=== PATIENT | male | born 1970 | race Caucasian/White ===

== ENCOUNTER 2025-01-31 02:36 | Emergency (ER) | payer OTHER, SELFPAY ==
--- OUTSIDE RECORDS SUMMARY | 2025-01-14 15:00 | XMS_ITS | Encounter Summary ---
Author Organization [facility] Address [address] [place] [address] Care Team Providers Care Lab Rn Name Role Phone Mauro Cedeno OD Unavailable + Delon Calderon PA-C Unavailable [phone] Severo Lamb MD Unavailable [phone] Lian Roland MD Unavailable [phone] Servando Moreno MD Unavailable Joyce Hart DO Primary Care Provider Encounter Details Date Type Department Care Team (Late st Contact Info) Description 01/14/2025 1:00 PM PST Video Visit [facility] [address] [place] [phone] Pj Cunningham PA [address] [place] [address] Upper back pain on left side (Primary Dx); Acute pain of left shoulder Social History Tobacco Use Types Packs/Day Years Used Date Smoking Tobacco: Never Smokeless Tobacco: Never Alcohol Use Standard Drinks/Week Comments Yes 0 (1 standard drink = 0.6 oz pur e alcohol) occasionally Overall Financial Resource Strain (CARDIA) Answe r Date Recorded How hard is it for you to pa vishal for the very basics like food, housing, medical care, and heating? Not very hard 08/31/2023 Hunger Vital Sign Answer Date Recorded Within the past 12 months, y ou worried that your food would run out before you got the money to buy more. Never true 08/31/19 24 Within the past 12 months, t he food you bought just didn't last and you didn't have money to get more. Never true 08/31/2023 PRAPARE - Transportation Answer Date Re corded In the past 12 months, has l ack of transportation kept you from medical appointments or from getting medications? No 08/10 In the past 12 months, has l ack of transportation kept you from meetings, work, or from getting things needed for daily living? No 08/31/2023 Housing Stability Vital Sign Answer Mane e Recorded In the last 12 months, was t here a time when you were not able to pay the mortgage or rent on time? No 08/31/2023 In the last 12 months, how many places have you lived? 1 08/31/2023 In the last 12 months, was t here a time when you did not have a steady place to sleep or slept in a fpc (including now)? No 08/31/2023 Current Social Needs Answer Date Record ed Would you like a [facility] to assist you in getting help with any of the following? Please select ALL that apply. 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 Answer Date of Assessment Author No 05/04/2015 8:36 AM PST * Is this person blind or does he/she have serious difficulty seeing even when wearing glasses? Answer Date of Assessment Author No 05/04/2015 8:36 AM PST * Does this person have serious difficulty walking or climbing stairs? Answer Date of Assessment Author No 05/04/2015 8:36 AM PST * Because of a physical, mental, or emotional condition, does this person have difficulty doing errands alone such as visiting a doctor's office or shopping? Answer Date of Assessment Author No 05/04/2015 8:36 AM PST documented as of this encounter Mental Status * Because of a physical, mental, or emotional condition, does this person have serious difficulty concentrating, remembering, or making decisions? Answer Entry Date Author No 05/04/2015 8:36 AM PST documented in this encounter Progress Notes * Pj Cunningham PA - 01/14/2025 1:00 PM PST Video Visit Patient Name: Pierre Rider Age: [age] year old PCP: Joyce Jones DO Date of Service: 01/14/2025 No chief complaint on file. SUBJECTIVE: Pierre Rider is a 54 year old male who presents virtually for the following: Left sided upper back (Right periphery of shoulder blade) and shoulder pain x 1 week No known trauma or injury Some repetitive overuse activity Was attempting to start a generator but was with the right arm not the left Not improving and maybe worsening Hurts to cough/sneeze/certain movements Current pain level at rest 2-3 and with coughing/moving 5-8/10 Interfering with sleep No restricted range of motion Feels like muscle or pinched nerve Stabbing pain in back Arm/shoulder pain more diffuse Non-tender to touch No chest pain, shortness of breath Wheezing from respiratory allergies Postnasal drip with urge to cough No GI symptoms Subjective weakness due to pain Bending forward can be uncomfortable Somewhat better with massage Past Medical History: Diagnosis Date Allergic rhinitis Allergy, unspecified not elsewhere classified - Patient reported 01/04/2006 Benign neoplasm of colon - Patient reported 05/09/2013 Depressive disorder, not elsewhere classified - Patient reported 05/09/2013 Hx of colonoscopy 09/22/2021 Normal colonoscopy repeat 5 years due to family and personal hx Patient Active Problem List Diagnosis Seasonal allergic rhinitis due to pollen Nevus Family history of colon cancer Preventative health care Dermatographic urticaria Allergic rhinitis due to dust mite Hx of colonoscopy Cough 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 Seek medical attention after use (Patient not taking: Reported on 12/08/2024), Disp: 2 each, Rfl: 3 fluticasone propionate (FLONASE) 50 mcg/actuation nasal spray, Use 2 sprays in each nostril daily (Patient not taking: Reported on 12/08/2024), Disp: 1 each, Rfl: 6 omeprazole (PRILOSEC) 20 mg delayed release capsule, Take 1 capsule (20 mg) by mouth daily 30 minutes before a meal (Patient not taking: Reported on 12/08/2024), Disp: 30 capsule, Rfl: 11 cetirizine (ZYRTEC) 10 mg tablet, Take 10 mg by mouth daily, Disp: , Rfl: MISC DRUG (OTC PRODUCT (SEE SIG)), FENISTIL antihistamine (Patient not taking: Reported on 12/08/2024), Disp: , Rfl: MISC DRUG (OTC PRODUCT (SEE SIG)), Sinupret decongestant (Patient not taking: Reported on 12/08/2024), Disp: , Rfl: ergocalciferol (vitamin D2) (VITAMIN D ORAL), Take 1,000 mg by mouth daily (Patient not taking: Reported on 12/08/2024), Disp: , Rfl: ACETAMINOPHEN 325 MG ORAL TAB, Take 325 mg by mouth Do not exceed 4000mg/day PRN for pain, Disp: 100, Rfl: 11 OBJECTIVE: There were no vitals taken for this visit. Physical Exam: Left shoulder: normal ROM. Minimal discomfort with active ROM in all directions. ASSESSMENT/PLAN: (M54.9) Upper back pain on left side (primary encounter diagnosis) (M25.512) Acute pain of left shoulder Comment: pt convinced MSK in nature however no known injury or precipitating event. Symptoms worsening with cough, question underlying pulmonary cause. Recommend imaging for further evaluation. Pt refers to defer at this time. Would like to trial massage, maybe acupuncture first. Plan: X-RAY CHEST 2V (STD) PA+LAT, X-RAY SCAPULA (STD): 4V SHOULDER Follow up if not improving. Pierre Rider actively participated in the shared decision making process today. The patient indicates understanding of these issues and agrees with the plan. Video Visit Provider was located at [facility] for this visit and the patient was located at Home in [facility] A plant taxonomist was not necessary for this exam. This Video Visit consisted of 24 minutes of total time spent on today's encounter. Time may include direct patient care, reviewing pertinent records & follow-up activity. The patient reviewed and understands the [facility] telemedicine consent document and has discussed any related concerns or questions during the visit. KISHAN Keenan 01/14/2025 documented in this encounter Plan of Treatment Upcoming Encounters Date Type Department Care Team (Late st Contact Info) Description 02/12/2025 2:15 PM PST Procedure Visit [facility] [address] [place] [phone] Scheduled Orders Name Type Priority Associated Diagnoses Orde r Schedule X-RAY CHEST 2V (STD) PA+LAT Imaging Routine Upper back pain on left side Ordered: 01/14/2025 X-RAY SCAPULA (STD): 4V SHOULDER Imaging Routine Upper back pain on left side Ordered: 01/14/2025 documented as of this encounter Visit Diagnoses Diagnosis Upper back pain on left side- Primary Pain in thoracic spine Acute pain of left shoulder documented in this encounter Care Teams Lab Rn Relationship Specialty Start Date End Date Joyce Jones DO [address] [place] [address] PCP - General 04/06/19 Mauro Cedeno OD [address] [place] [address] Investment Representative: Auto-assigned Optometry, General 10/22/14 Delon Calderon PA-C [address] [place] [address] Orthopedics PA/EMBEDDED SOFTWARE MANAGER: Auto-Assigned Orthopedic Surgery 11/12/14 [place] [phone] Allergy Physician: Auto-assigned Allergy & Immunology 12/24/14 Lian Roland MD Dermatology Physician: Auto-assigned Dermatology 01/14/15 Servando Moreno MD [facility] Physician: Auto-assigned Sports Medicine 05/13/15 documented as of this encounter
[2025-01-31 02:40] VITALS: BP 106/70; PULSE 94; RESP 16; TEMP 35.6; O2SAT 95; BMI 28.3
--- NOTE | 2025-01-31 02:56 | ED_ITS ---
HPI - General Adult General Chief complaint: Diarrhea Stated complaint: Diarrhea, nausea Time Seen by Provider: 01/31/25 02:55 History of Present Illness HPI narrative: pt reports diarrhea, starting around noon 2024. Pt reports vomiting starting around midnight. 54-year-old man presenting to the emergency department with concern diarrhea and now vomiting. Beginning yesterday around noon began to have episodes of diarrhea. Does not describe any melena or hematochezia. And then about 3 hours prior to arrival in the emergency department began vomiting. Did experience moderate abdominal pain/cramping. While on the toilet apparently did have an episode of syncope and came to finding himself vomiting into the bathtub. No hematemesis although they do report that vomitus seemed unusually voluminous and then eventually dark which is concerning. Is not having significant abdominal pain at this time. No measured fever but does report how skin had been sensitive and he is still left with some back ache. By 1 point did experience significant shakes. No rashes noted. No particular exposures. No noted recent antibiotics. They called in and apparently spoke to physician who suggested at the present to the emergency department at least to receive an antiemetic. Related Data Allergies Allergy/AdvReac Type Severity Reaction Status Date / Time No Known Drug Allergies Allergy Verified 01/31/25 02:45 Review of Systems Status of ROS: Reports: 6 or more systems reviewed and unremarkable except as noted in History and below Exam Narrative: Exam Narrative: Does appear a little labored and mildly tachypneic in his breathing. Pleasant. Tired but alerts easily for conversation. Skin is warm and dry. Present bowel sounds. Abdomen generally of little uncomfortable but not significantly painful. No peritoneal signs certainly. Heart in elevated rate and regular rhythm. Lungs are clear. Oropharynx without bladder indication of injury. A with little sticky. Const: Vital Signs, click to edit/add: Vital Signs - 24 hr 01/31/25 02:40 Temperature 96.0 F L Pulse Rate [Left P ulse Oximeter] 94 Respiratory Rate 16 Blood Pressure [Ri ght Upper Arm] 106/70 Pulse Oximetry 95 Oxygen Delivery Me thod Room Air Documenting provider has reviewed patient's vital signs: yes Course Vital Signs Vital signs: Initial Vital Signs Temperature 96.0 F L 01/31/25 02:40 Temperature Source Temporal Artery Scan 01/31/25 02:40 Pulse Rate 94 01/31/25 02:40 Pulse Rhythm Regular 01/31/25 02:40 Respiratory Rate 16 01/31/25 02:40 Blood Pressure 106/70 01/31/25 02:40 Blood Pressure Mean 82 01/31/25 02:40 Blood Pressure Position Sitting 01/31/25 02:40 Pulse Oximetry 95 01/31/25 02:40 Oxygen Delivery Method Room Air 01/31/25 02:40 Vital Signs Temperature 96.0 F L 01/31/25 02:40 Pulse Rate 94 01/31/25 02:40 Respiratory Rate 16 01/31/25 02:40 Blood Pressure 106/70 01/31/25 02:40 Pulse Oximetry 95 01/31/25 02:40 Oxygen Delivery Method Room Air 01/31/25 02:40 Temperature 98.0 F 01/31/25 04:33 Pulse Rate 87 01/31/25 04:33 Respiratory Rate 16 01/31/25 04:33 Blood Pressure 118/77 01/31/25 04:33 Pulse Oximetry 98 01/31/25 04:33 Oxygen Delivery Method Room Air 01/31/25 04:33 Medications Administered Medications: Discontinued Medications Generic Name Dose Route Start Last Admin Trade Name Freq PRN Reason Stop Dose Admin Sodium Chloride 1,000 mls @ 1,000 mls/hr 01/31/25 03:07 01/31/25 04:03 0.9 % Sodium Chloride 1000 Ml IV 01/31/25 04:06 Infused .Q1H ONE Infusion Loperamide HCl 4 mg 01/31/25 04:48 01/31/25 05:00 Loperamide Hcl 2 Mg Capsule PO 01/31/25 04:49 4 mg ONCE ONE Administration Ondansetron HCl 4 mg 01/31/25 03:07 01/31/25 03:18 Ondansetron 2 Mg/Ml Inj IVP 01/31/25 03:08 4 mg ONCE ONE Administration Medical Decision Making MDM Narrative Medical decision making narrative: Course of diarrhea and vomiting of unclear etiology this point. No red flags otherwise except for the syncopal event which I suspect is vasovagal. I am not sure that these shakes as described represent rigors or not. I think probably he is dehydrated and would improve sooner with IV fluids. After discussion would he like to proceed with this. Check chemistries and hemoglobin if this might be a source of possible syncope. Monitor on patient monitor. Screen for COVID and influenza. At this point I do not think we need stool collection. I suspect white count would be mildly elevated and would defer this at this time. Placed IV given normal saline. Zofran and ultimately loperamide closer to departure time. Was overall improved during time in the emergency department. Labs are reassuring. No further events during time of monitoring. See patient discharge plan for further discussion Continue to focus on hydration. Slow advance of diet over the next 24-36 hours. Start with diluted juices, soup broth, crackers, rice, toast. Return for inability to keep fluids down, increasing and persistent abdominal pain particularly associated with fever, worsening lightheadedness, repeat syncope. As long as you are not experiencing a fever nor seeing blood in your stool, could take loperamide for diarrhea. Prescribing also Zofran (also known as ondansetron) for nausea from [facility]. Lab Data Lab results reviewed: Yes I reviewed the patient's lab results Labs: Lab Results 01/31/25 Range/Units 03:15 Hgb 14.4 (13.5-17.5) gm/dL Sodium 133 L (135-149) mmol/L Potassium 3.7 (3.6-5.1) mmol/L Chloride 101 (96-114) mmol/L Carbon Dioxide 18 L (20-32) mmol/L Anion Gap 14 (7-15) mEq/L BUN 21 (7-30) mg/dL Creatinine 1.2 (0.5-1.5) mg/dL Estimated Creat Clear 73.21 Estimated GFR 71 ml/min Glucose 166 H (60-115) mg/dL Calcium 8.3 L (8.4-10.6) mg/dL SARS-CoV-2 (PCR) Negative SARS-CoV-2 (Negative) Influenza Type A (PCR) Negative PCR FLU A (Negative) Influenza Type B (PCR) Negative PCR FLU B (Negative) Discharge Plan Discharge Clinical Impression: Vomiting, Diarrhea, Dehydration Patient Disposition: Home w/ Parent or Adult Condition: Improved Additional Instructions: Continue to focus on hydration. Slow advance of diet over the next 24-36 hours. Start with diluted juices, soup broth, crackers, rice, toast. Return for inability to keep fluids down, increasing and persistent abdominal pain particularly associated with fever, worsening lightheadedness, repeat syncope. As long as you are not experiencing a fever nor seeing blood in your stool, could take loperamide for diarrhea. Prescribing also Zofran (also known as ondansetron) for nausea from [facility]. Follow Up/Referrals: Provider,Not a Local [Primary Care Provider, Family Practice] Stand Alone Forms: [employer] Info Instructions
[2025-01-31] MEDS: ONDANSETRON 2 MG/ML inj 4 MG IVP (03:18)
[2025-01-31 03:38] LABS: Hemoglobin* 14.4 gm/dL (13.5-17.5)
[2025-01-31 03:43] LABS: Chloride* 101 mmol/L (96-114)
[2025-01-31 03:44] LABS: Potassium* 3.7 mmol/L (3.6-5.1); Sodium* 133 mmol/L (135-149)
[2025-01-31 03:46] LABS: Blood Urea Nitrogen* 21 mg/dL (7-30); Creatinine* 1.2 mg/dL (0.5-1.5); Est. Creatinine Clearance* 73.21; Estimated Glomerular Filt Rate 71 ml/min
[2025-01-31 03:47] LABS: Anion Gap 14 mEq/L (7-15); Calcium* 8.3 mg/dL (8.4-10.6); Carbon Dioxide* 18 mmol/L (20-32); Glucose* 166 mg/dL (60-115)
[2025-01-31 04:03] LABS: PCR FLU A Negative PCR FLU A (Negative); PCR FLU B Negative PCR FLU B (Negative); SARS PCR* Negative SARS-CoV-2 (Negative)
--- OUTSIDE RECORDS SUMMARY | 2025-01-31 04:25 | XMS_ITS | Encounter Summary ---
Author Organization [facility] Address [address] [place] [address] Care Team Providers Care Drawer Liner Name Role Phone Mauro Cedeno OD Unavailable + Delon Calderon PA-C Unavailable Severo Lamb MD Unavailable [phone] Lian Roland MD Unavailable [phone] Servando Moreno MD Unavailable Ryani Joyce Cheung DO Primary Care Provider Encounter Details Date Type Department Care Team (Late st Contact Info) Description 01/14/2025 Patient Self-Triage Consulting Nurse [address] [place] [address] Yolis Pacheco MD [address] [place] [address] Back Pain Social History Tobacco Use Types Packs/Day Years Used Date Smoking Tobacco: Never Smokeless Tobacco: Never Alcohol Use Standard Drinks/Week Comments Yes 0 (1 standard drink = 0.6 oz pur e alcohol) occasionally Overall Financial Resource Strain (CARDIA) Answe r Date Recorded How hard is it for you to pa y for the very basics like food, housing, [...] place to sleep or slept in a snf (including now)? 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 Not on file Not [...] 8:36 AM PST documented in this encounter Plan of Treatment Upcoming Encounters Date Type Department Care Team (Late st Contact Info) Description 02/12/2025 2:15 PM PST Procedure Visit [facility] [address] [place] [address] documented as of this encounter Visit Diagnoses Not on filedocumented in this encounter Care Teams Drawer Liner Relationship Specialty Start Date End Date Joyce Jones DO [address] [place], [place] [phone] PCP - General 04/06/19 Mauro Cedeno OD [address] [place], [place] [phone] Block Operator: Auto-assigned Optometry, General 10/22/14 Delon Calderon, PAYolandaC [address] [place], [place] [phone] Orthopedics PA/MAT LINKER: Auto-Assigned Orthopedic Surgery 11/12/14 Severo Lamb MD [address] [place] [phone] Allergy Physician: Auto-assigned Allergy & Immunology 12/24/14 Lian Roland MD Dermatology Physician: Auto-assigned Dermatology 01/14/15 Servando Moreno MD ASEM Physician: Auto-assigned Sports Medicine 05/13/15 documented as of this encounter
--- OUTSIDE RECORDS SUMMARY | 2025-01-31 04:25 | XMS_ITS | Encounter Summary ---
Author Organization [facility] Address [address] [place] [address] Care Team Providers Care Continuous Mining Machine [employer] Miner Name Role Phone Mauro Cedeno OD Unavailable + Delon Calderon PA-C Unavailable Severo Lamb MD Unavailable [phone] Lian Roland MD Unavailable [phone] Servando Moreno MD Unavailable Joyce Hart DO Primary Care Provider [phone] Reason for Visit * Reason Comments CUSTOMER SERVICE CLERK ABD CUSTOMER SERVICE CLERK GI CUSTOMER SERVICE CLERK BOWEL Encounter Details Date Type Department Care Team (Latest Contact Info) Description 01/30/2025 [facility] Telephone Encounter Consulting Nurse [address] [place], [place] [id number] Shanelle Heart, JANICE [address] [place] [address] CUSTOMER SERVICE CLERK ABD; CUSTOMER SERVICE CLERK GI; CUSTOMER SERVICE CLERK BOWEL Social History Tobacco Use Types Packs/Day Years [...] place to sleep or slept in a care home (including now)? 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 Not on file Not [...] 8:36 AM PST documented in this encounter Miscellaneous Notes * Telephone Encounter - Shanelle Heart RN - 01/30/2025 11:25 PM PST Complaint: Adult Nausea, Vomiting and Diarrhea History & Timing: Pierre Rider is a 54 year old patient who reports Patient currently in [place] Bouts of diarrhea throughout the day Some nausea intermittently, some wretching Actively vomiting during call Shaking uncontrollably just before call Trying to hydrate with Gatorade Lower back pain, took naproxen earlier, takes regularly Chronic cough, with some difficulty breathing during coughing bouts Partner reports some dark potentially coffee ground like material in vomit Red Flags for [facility] or [facility] Consult: None Additional Call Information Recommended Disposition: Vomiting blood/coffee grounds OR deep red/black stool: Required [facility] MD Triage, ED Advice Topics: None Final Disposition: [facility] Provider to manage Are there any questions about the information we have discussed? Follow up with your primary care team as needed. After hours you can use [facility] phone/video visit or Call Consulting Nurse Services 01/10. documented in this encounter Plan of Treatment Upcoming Encounters Date Type Department Care Team (Late st Contact Info) Description 02/12/2025 2:15 PM PST Procedure Visit [facility] [address] [place] [phone] documented as of this encounter Visit Diagnoses Not on filedocumented in this encounter Care Teams Continuous Mining Machine [employer] Miner Relationship Specialty Start Date End Date Joyce Jones DO [address] [place] [address] PCP - General 04/06/19 Mauro Cedeno OD [address] [place] [address] Community Fundraiser: Auto-assigned Optometry, General 10/22/14 Delon Calderon PA-C [address] [place] [address] Orthopedics PA/ABORIGINAL LIAISON OFFICER: Auto-Assigned Orthopedic Surgery 11/12/14 Severo Lamb MD [address], [place] [address] Allergy Physician: Auto-assigned Allergy & Immunology 12/24/14 Lian Roland MD Dermatology Physician: Auto-assigned Dermatology 01/14/15 Servando Moreno MD ASEM Physician: Auto-assigned Sports Medicine 05/13/15 documented as of this encounter
--- OUTSIDE RECORDS SUMMARY | 2025-01-31 04:25 | XMS_ITS | Clinical Summary ---
Author Organization [facility] Address [address] [place] [address] Care Team Providers Care Director Intelligence Analysis Programs Name Role Phone Mauro Cedeno OD Unavailable + Delon Calderon PA-C Unavailable Severo Lamb MD Unavailable [phone] Lian Roland MD Unavailable [phone] Servando Moreno MD Unavailable Ryani Joyce Cheung DO Primary Care Provider Source Comments NOTE: The information displayed by Care Everywhere is extracted from the complete medical record and may not identify all current or past patient conditions.[facility] Allergies Active Allergy Reactions Criticality Noted Date Comments Pollen Extracts Other 01/24/2018 Cold like symptoms Venom-Yellow Jacket High 12/12/2010 Medications ACETAMINOPHEN 325 MG ORAL TAB Take 325 mg by mouth Do not exceed 4000mg/day PRN for pain 100 11 1 Active ergocalciferol (vitamin D2) (VITAMIN D ORAL) Take 1,000 mg by mouth daily Active cetirizine (ZYRTEC) 10 mg tablet Take 10 mg by mouth daily Active MISC DRUG (OTC PRODUCT (SEE SIG)) FENISTIL antihistamine Active MISC DRUG (OTC PRODUCT (SEE SIG)) Sinupret decongestant Active EPINEPHrine (ADRENACLICK) 0.3 mg/0.3 mL IM pen injectorIndicat ions: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 Seek medical attention after use 2 each 3 2023 7:08 AM PDT 4 Active Additional Information Patient not taking.Reported on 12/08/2024 fluticasone propionate (FLONASE) 50 mcg/actuation nasal sprayIndication s:Post-nasal drip Use 2 sprays in each nostril daily 1 each 6 2023 7:08 AM PDT 4 Active Additional Information Patient not taking.Reported on 12/08/2024 omeprazole (PRILOSEC) 20 mg delayed release capsuleIndicati ons:Cough, unspecified type Take 1 capsule (20 mg) by mouth daily 30 minutes before a meal 30 capsule 11 2023 7:08 AM PDT 4 Active Additional Information Patient not taking.Reported on 12/08/2024 fluticasone propionate (FLONASE) 50 mcg/actuation nasal sprayIndication s:Chronic cough Use 2 sprays in each nostril daily for 6 weeks 1 each 1 12/09/2024 10:10 PM PDT 5 026 Active Active Problems Problem Noted Date Diagnosed Date Cough 09/06/2023 Assessment & Plan (09/06/2023 11:08 AM PDT): Persistent cough and postnasal drip, possibly due to allergies or silent reflux. Symptoms worsen after eating and are associated with phlegm production and congestion. -Start daily use of Flonase. -Continue cetirizine. -Consider adding omeprazole if symptoms persist after 2-3 weeks. 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 -Refill epinephrine prescription. Post-nasal drip 09/06/2023 Assessment & Plan (09/06/2023 11:08 AM PDT): As above under cough Hemorrhoids 09/06/2023 Assessment & Plan (09/06/2023 11:08 AM PDT): Recurrent flare-ups of hemorrhoids, no current pain or thrombosis. -Advise high fiber diet and reduced straining during bowel movements. -Consider use of cortisone cream for flare-ups. Hx of colonoscopy 09/22/2021 Overview (01/20/2022): Normal colonoscopy repeat 5 years due to family and personal hx Allergic rhinitis due to dust mite 08/13/2016 Dermatographic urticaria 12/20/2014 Preventative health care 12/12/2010 Overview (12/12/2010): Tdap= 08 Flu= PPV= Shingles= X DEXA/AAA= X FOBT= X Flex-Sig= X Colon= X HX= done CPE= 05-02- Eye= 610-11 Family history of colon cancer 08/05/2007 Overview (08/05/2007): Mother had colon cancer at age 53, would recommend patient getting a colonoscopy at age 43 Nevus 05/01/2007 Overview (10/20/2021): L scapula medial: 7.5x5mm, light/dark brown, flat, regular borders, macula R inner lower lex3mm, light/dark brown, flat, regular borders, macula Seasonal allergic rhinitis due to pollen 005 Resolved Problems Problem Noted Date Diagnosed Date Resolved Date Superficial injury of finger 08/12/2006 08/05/2007 Overview (04/08/2015): Need for desensitization to allergens 08/23/2005 08/13/2016 Encounters Date Type Department Care Team Description 01/30/2025 Telephone Care Management [address] [place] [address] Nicci Mason MD Gastrointestinal Sx 01/30/2025 [facility] Telephone Encounter Consulting Nurse [id number] [place], [place] [id number] Shanelle Heart RN AEROTRIANGULATION SPECIALIST ABD; AEROTRIANGULATION SPECIALIST GI; AEROTRIANGULATION SPECIALIST BOWEL 01/14/2025 1:00 PM PST Video Visit [facility] [address] [place] [address] Pj Cunningham PA Upper back pain on left side (Primary Dx); Acute pain of left shoulder 01/14/2025 [facility] Telephone Encounter [facility] [address] [place] [address] Megan Olvera MA Referral; Massage 01/14/2025 [facility] Telephone Encounter Consulting [place] [address] Amari Forrester RN AEROTRIANGULATION SPECIALIST MUSCULOSKEL 01/14/2025 Patient Self-Triage Consulting [place] [address] oYlis Pacheco MD Back Pain 12/08/2024 1:20 PM PDT Office Visit [address] [address] Maurice Blanchard MD Chronic cough (Primary Dx) 12/04/2024 Scanned Administrative Document [facility] Unsolicited Results Consent from Last 3 Months Immunizations Immunization Administration Dates Next Due *STANDARD DOSE SYRINGE* (FluARIX,FluLAVAL,FluZONE) (6+ mos) TRI 12/04/2024,11/22/2023,01/19/2014,2010 *STANDARD DOSE SYRINGE* (FluLAVAL,FluZONE,FluARIX or AFLURIA) (6+ mos) QUAD 12/22/2022,11/17/2021,12/09/2020,2019,12/05/2018,12/06/2017,01/11/2017,0 11/22/2014 DT (Diphtheria, Tetanus (PF)) 09/13/2000 Hep B Adult (ENGERIX-B, 3 Do se Series) 03/15/1998,10/25/1997,09/22/1997 HepA (Hepatitis A) 03/15/1998,09/22/1997 HepB (Hepatitis B) 04/21/2009, 9,10/25/1997,1997 Herpes Zoster (SHINGRIX) 03/25/2020,01/23/2020 IPV (Polio) 04/28/2009,11/05/1977 Influenza (0.5 PF) 12/12/2010 MMR (Measles, Mumps, Rubella) 09/25/2024, 992 Moderna SARS-CoV-2 Vaccinati on (12 + y/o)(REGIONAL WILDLIFE AGENT) 05/27/2020,04/29/2020 PCV20 (PREVNAR 20, Pneumococ apryl Conjugate Vaccine 20-Valent) 09/25/2024 PPD (Tb skin test) 07/29/2012,10/25/2009 Pfizer SARS-CoV-2 Vaccinatio n (12 + y/o) (PURPLE CAP) 01/27/2021 Pfizer SARS-CoV-2 Vaccinatio n (COMIRNATY) (12+ y/o) 12/04/2024,11/22/2023,12/22/2022 Td (Tetanus, Diphtheria) 09/13/2000 Td PF (Tetanus, Diphtheria) 01/11/2017 Tdap (Tetanus, Diphtheria, a cellular Pertussis) 01/26/2008 Typhoid Oral (VIVOTIF, Patie nt Self-Administered) 05/01/2019,04/28/2009 Yellow Fever 04/28/2009 Family History Medical History Relation Comments Cancer, Other Father Pancreatic Diabetes Father Diabetes Maternal Grandmother Osteoporosis Maternal Grandmother Colon Cancer Mother first diagnosed at age 53 Depression Mother Osteoporosis Mother Osteoporosis Other 1 - Patient report ed 01/04/2006 Colon Polyps (Advanced Adenomatous) Other 2 One relative - Patient repor efraín 01/04/2006 Prostate Cancer Paternal Uncle Depression Sister 2 Relation Status Comments Father Alive Maternal Grandfather (Age 60) Maternal Grandmother (Age 77) Mother Alive Other 1 Other 2 Paternal Grandfather (Age 80) Paternal Grandmother (Age 80) Paternal Uncle Sister 1 Alive Sister 2 Social History Tobacco Use Types Packs/Day Years Used Date Smoking Tobacco: Never Smokeless Tobacco: Never Tobacco Cessation:Counseling Given: Not Answered Alcohol Use Standard Drinks/Week Comments Yes 0 [...] place to sleep or slept in a fci (including now)? 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 Not on file Last Filed Vital Signs Vital Sign Reading Time Taken Comments Blood Pressure 122/70 12/08/2024 1:22 PM PDT Pulse 72 12/08/2024 1:22 PM PDT Temperature 36.5 C (97.7 F) 12/08/2024 1:22 PM PDT Respiratory Rate 14 05/26/2018 9:51 AM PDT Oxygen Saturation 99% 12/08/2024 1:22 PM PDT Inhaled Oxygen Concentration - - Weight 93.1 kg (205 lb 4.8 oz) 12/08/2024 1:22 P M PDT Height 180.3 cm (5' 11) 12/08/2024 1:22 PM PDT Body Mass Index 28.63 12/08/2024 1:22 PM PDT Plan of Treatment Upcoming Encounters Date Type Department Care Team (Late st Contact Info) Description 02/12/2025 2:15 PM PST Procedure Visit [facility] [address] [place] [phone] Health Maintenance Due Date Last Done Comments Adult HIV Screen (1-time) 09/11/1983 Hep C Screening (1-time) 1986 Blood Pressure Check 11/07/2025 12/08/2024, 03/29/19 24 COL-S Colonoscopy 09/22/2026 09/22/2021, , 09/28/2016, Additional history exists Vaccine: NWpN-[id number]-Xw (4 - T d or Tdap) 01/11/2027 01/11/2017, 01/26/2008, 09/13/2000, Additional history exists Vaccine: Shingles Completed 03/25/2020, 01/23/2020 FLU VACCINE Completed 12/04/2024, 11/09, 12/22/2022, Additional history exists Procedures Procedure Name Priority Date/Time Associated Diagnosis Comments RADIOLOGIC EXAM, CHEST; 2 VIEWS Routine 12/08/2024 1:59 PM PDT Chronic cough COLONOSCOPY (OUTSIDE/HISTORICAL) Routine 09/22/2021 from Last 3 Months or Most Recently Relevant to Health Maintenance Results * X-RAY CHEST 2V (STD) PA+LAT (12/08/2024 1:59 PM PDT) Anatomical Region Laterality Modality Other 12/08/2024 1:59 PM PDT Impressions 12/08/2024 3:37 PM PDT Impression: No active disease Signed by: Martín George Date: 12/08/2024 3:37 PM Narrative 12/08/2024 3:37 PM PDT [HST]: chronic cough Comparison: February 16, 2008 Findings: PA and lateral views of the chest were obtained. There are no pulmonary infiltrates or pleural effusions. The cardiac silhouette is normal. Maurice Blanchard MD GENERAL DIAGNOSTIC Final Resul t * COLONOSCOPY (OUTSIDE/HISTORICAL) (09/22/2021) COLONOSCOPY (OUTSIDE/HISTOR ICAL) Normal colonoscopy repeat 5 years due to pt hx us Pili Sheehan OUTSIDE/HISTORICAL Final Result from Last 3 Months or Most Recently Relevant to Health Maintenance Insurance [facility] [place] [id number] Advance Directives For more information, please contact: [phone] Documents on File Type Date Recorded Patient Dot Compliance Coordinator Expl anation Durable Power of Battery Repairer Advance Directive and Living Will Care Teams Director Intelligence Analysis Programs Relationship Specialty Start Date End Date Joyce Jones DO [address] [place] [address] PCP - General 04/06/19 Mauro Cedeno OD [address] [place], [place] [phone] Technology Lead: Auto-assigned Optometry, General 10/22/14 Delon Calderon PA-C [address] [place] [address] Orthopedics PA/TROUT FARMER: Auto-Assigned Orthopedic Surgery 11/12/14 Severo Lamb MD [facility] [place] [address] Allergy Physician: Auto-assigned Allergy & Immunology 12/24/14 Lian Roland MD Dermatology Physician: Auto-assigned Dermatology 01/14/15 Servando Moreno MD [facility] Physician: Auto-assigned Sports Medicine 05/13/15
--- OUTSIDE RECORDS SUMMARY | 2025-01-31 04:25 | XMS_ITS | Encounter Summary ---
Author Organization [facility] Address [address] [place] [address] Care Team Providers Care Motorboat Operator Name Role Phone Mauro Cedeno BELKIS Unavailable + Delon Calderon PA-C Unavailable [phone] Severo Lamb MD Unavailable [phone] Lian Roland MD Unavailable [phone] Servando Moreno MD Unavailable Ryani Joyce Cheung DO Primary Care Provider Encounter Details Date Type Department Care Team (Late st Contact Info) Description 01/20/2022 Quick Abstraction [facility] [address] [place] [address] [place] [address] Sanna Willis MA [address] [place] [address] Social History Tobacco Use Types Packs/Day Years [...] medical care, and heating? Not very hard 10/12/2021 Hunger Vital Sign Answer Date Recorded Within the past 12 months, y ou worried that your food would run out before you got the money to buy more. Never true 10/13/19 22 Within the past 12 months, t he food you bought just didn't last and you didn't have money to get more. Never true 10/12/2021 PRAPARE - Transportation Answer Date Re corded In the past 12 months, has l ack of transportation kept you from medical appointments or from getting medications? No 06/2021 In the past 12 months, has l ack of transportation kept you from meetings, work, or from getting things needed for daily living? No 10/12/2021 Housing Stability Vital Sign Answer Mane e Recorded In the last 12 months, was t here a time when you were not able to pay the mortgage or rent on time? No 10/12/2021 In the last 12 months, how many places have you lived? 1 10/12/2021 In the last 12 months, was t here a time when you did not have a steady place to sleep or slept in a care home (including now)? 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 file Not [...] Upcoming Encounters Date Type Department Care Team (Judit steele Contact Info) Description 02/12/2025 2:15 PM PST Procedure Visit [facility] [address] [place] [phone] documented as of this encounter Procedures Procedure Name Priority Date/Time Associated Diagnosis Comments COLONOSCOPY (OUTSIDE/HISTORICAL) Routine 09/22/2021 documented in this encounter Results * COLONOSCOPY (OUTSIDE/HISTORICAL) (09/22/2021) COLONOSCOPY (OUTSIDE/HISTOR ICAL) Normal colonoscopy repeat 5 years due to pt hx us Meimin Aguila OUTSIDE/HISTORICAL Final Result documented in this encounter Visit Diagnoses Not on filedocumented in this encounter Care Teams Motorboat Operator Relationship Specialty Start Date End Date Joyce Jones DO [address] [place] [address] PCP - General 04/06/19 Mauro Cedeno OD [address] [place] [address] Transportation Program Director: Auto-assigned Optometry, General 10/22/14 Delon Calderon PAYolandaC [address] [place] [address] Orthopedics PA/POLE TESTER: Auto-Assigned Orthopedic Surgery 11/12/14 Severo Lamb MD [address] [place] [address] Allergy Physician: Auto-assigned Allergy & Immunology 12/24/14 Lian Roland MD Dermatology Physician: Auto-assigned Dermatology 01/14/15 Servando Moreno MD ASEM Physician: Auto-assigned Sports Medicine 05/13/15 documented as of this encounter
--- OUTSIDE RECORDS SUMMARY | 2025-01-31 04:25 | XMS_ITS | Encounter Summary ---
Author Organization [facility] Address [address] [place] [address] Care Team Providers Care Tire Curer Name Role Phone Mauro Cedeno OD Unavailable + Delon Calderon PA-C Unavailable [phone] Severo Lamb MD Unavailable [phone] Lian Roland MD Unavailable [phone] Servando Moreno MD Unavailable Joyce Hart DO Primary Care Provider Reason for Visit * Reason Comments Gastrointestinal Sx Encounter Details Date Type Department Care Team (Late st Contact Info) Description 01/30/2025 Telephone Care Management [address] [phone] Nicci Mason MD [address], [place] [phone] Gastrointestinal Sx Social History Tobacco Use Types Packs/Day Years [...] place to sleep or slept in a prison (including now)? 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 Initial RN Disposition: ED. HISTORY OF PRESENT ILLNESS Pierre Rider is a 54 year old male who called FURNITURE CLEANER with a complaint of coffee ground emesis Not well this morning Ate breakfast, dark berries and oatmilk and milk Episodes of diarrhea - about 10 Vomiting started tonight an hour again Been drinking small frequent gatorade Had dry toast There is not an urgent care within roughly [address] of this patient that is currently open. An ED alternative is not suggested. Patient is agreeable to the plan. The patient sites barriers to ED alternative that include: None The following system barriers were encountered when arranging and discussing care site: No barriers IMPRESSION Gastroenteritis PLAN Medical Decision Making and Plan: Not holding anything down at this time, will proceed to ED, no access to zofran Advised to go to the Emergency Department Nicci Mason MD Emergency Patient Resources & Options [facility] 01/30/2025 11:37 PM documented in this encounter Plan of Treatment Upcoming Encounters Date Type Department Care Team (Late st Contact Info) Description 02/12/2025 2:15 PM PST Procedure Visit [facility] [address] [place] [phone] documented as of this encounter Visit Diagnoses Not on filedocumented in this encounter Care Teams Tire Curer Relationship Specialty Start Date End Date Joyce Jones DO [address] [place] [address] PCP - General 04/06/19 Mauro Cedeno, OD [address] [place] [address] Loom Doffer: Auto-assigned Optometry, General 10/22/14 Delon Calderon PA-C [address] [place] [address] Orthopedics PA/BOARDING MOTHER: Auto-Assigned Orthopedic Surgery 11/12/14 Severo Lamb MD [address] [place] [phone] Allergy Physician: Auto-assigned Allergy & Immunology 12/24/14 Lian Roland MD Dermatology Physician: Auto-assigned Dermatology 01/14/15 Servando Moreno MD ASEM Physician: Auto-assigned Sports Medicine 05/13/15 documented as of this encounter
--- OUTSIDE RECORDS SUMMARY | 2025-01-31 04:25 | XMS_ITS | Encounter Summary ---
Author Organization [facility] Address [address] [place] [address] Care Team Providers Care Tub Rider Name Role Phone Mauro Cedeno BELKIS Unavailable + Delon Calderon PA-C Unavailable Severo Lamb MD Unavailable [phone] Lian Roland MD Unavailable [phone] Servando Moreno MD Unavailable Ryani Joyce Cheung DO Primary Care Provider [phone] Encounter Details Date Type Department Care Team (Late st Contact Info) Description 02/27/2023 Automated Patient Message [address] [address] Social History Tobacco Use Types Packs/Day Years [...] place to sleep or slept in a halfway (including now)? 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 Not [...] Description 02/12/2025 2:15 PM PST Procedure Visit [facility] [address] [place] [phone] documented as of this encounter Visit Diagnoses Not on filedocumented in this encounter Care Teams Tub Rider Relationship Specialty Start Date End Date Joyce Jones DO [address] [place] [address] PCP - General 04/06/19 Mauro Cedeno, OD [address] [place] [address] Varnish Inspector: Auto-assigned Optometry, General 10/22/14 Delon Calderon, PA-C [address] [place] [address] Orthopedics PA/CORPORATE TRAVEL COORDINATOR: Auto-Assigned Orthopedic Surgery 11/12/14 Severo Lamb MD [address] [place] [phone] Allergy Physician: Auto-assigned Allergy & Immunology 12/24/14 Lian Roland MD Dermatology Physician: Auto-assigned Dermatology 01/14/15 Servando Moreno MD ASEM Physician: Auto-assigned Sports Medicine 05/13/15 documented as of this encounter
--- OUTSIDE RECORDS SUMMARY | 2025-01-31 04:25 | XMS_ITS | Patient Health Record ---
Author Organization [facility] Address [address] [place] [address] Care Team Providers Care Automation Tester Name Role Phone Reinaerika LOVELACE Joyce Primary Care Provider Unavaila Pili Ivey Unavailable [phone] Reason For Referral No Information Medications Medication SIG (Take, Route, Frequency, Duration) Notes Start Date End Date Status Cetirizine HCl 10 MG Tablet Oral Active Immunizations Vaccine Route Administration Date Status Comme nts Influenza, seasonal, injecta ble (split), for 3 yrs and up Unknown 09/22/2021 Administered Social History Social History Additional Details Category Social Info Options Details Migrated Social History Migrated Social History Alcohol: occasional use , Tobacco History : Never Smoked Problems Problem Type SNOMED Code ICD Code Onset Dates Problem Status W/U Status Risk Notes Problem Family history of malignant neoplasm of gastrointestinal tract (968982288) Family history of malignant neoplasm of digestive organs (Z80.0) 2 Active confirmed Problem History of polyp of colon (situation) (731523967) Personal history of colonic polyps (Z86.010) 2 Active confirmed Plan Of Treatment No Information Insurance Providers Payer Name Payer Address Payer Phone Subscriber Number Group Number Insured Name Patient Relationship to Insured Coverage Start Date Coverage End Date [facility] Plan [address] [address] [place] [address] [id number] Pierre Rider Self - patient is the insured 2 Medical (General) History Surgical History Surgery Date(Month/Year) Appendectomy
--- OUTSIDE RECORDS SUMMARY | 2025-01-31 04:25 | XMS_ITS | Encounter Summary ---
Author Organization [facility] Address [address] [place] [address] Care Team Providers Care Transformation Consultant Name Role Phone Mauro Cedeno OD Unavailable + Delon Calderon PA-C Unavailable Severo Lamb MD Unavailable [phone] Lian Roland MD Unavailable [phone] Servando Moreno MD Unavailable Joyce Hart DO Primary Care Provider [phone] Reason for Visit * Reason Comments Referral Massage Encounter Details Date Type Department Care Team (Latest Contact Info) Description [facility]/14[facility] Tele[facility] Encounter [address] [address] [place] [address] [place] [address] Referral; Massage Social History Tobacco Use Types Packs/Day Years [...] place to sleep or slept in a chcf (including now)? 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 Specialty: Status: New Have you previously been seen for this or discussed this with your PCP?Yes: When was your last related visit/hospital admission? 01/14/2025 A referral is being requested for an external referral. Name of specialty: Acupuncture and massage What clinic and provider would you like to schedule your appointment with (include address if available)?: [facility] not specific Please describe your current condition that prompted this referral request (include CPT/DX if available): upper left back and shoulder pain Referred by: Primary Care Joyce Jones [facility] PCP: Joyce Jones DO [facility] OK to leave a detailed message regarding clinical information: Yes (Patient has active MyChart) Additional Comments: Patient had a virtual appt 01/14, the provider suggested acupuncture and massage. If speaking with external facility, ask for fax number: none documented in this encounter Plan of Treatment Upcoming Encounters Date Type Department Care Team (Late st Contact Info) Description 02/12/2025 2:15 PM PST Procedure Visit [facility] [address] [place] [phone] documented as of this encounter Visit Diagnoses Not on filedocumented in this encounter Care Teams Transformation Consultant Relationship Specialty Start Date End Date Joyce Jones DO [address] [place] [address] PCP - General 04/06/19 Mauro Cedeno OD [address] [place] [address] Brush Machine Setter: Auto-assigned Optometry, General 10/22/14 Delon Calderon PA-C [address] [place], [place] [id number] Orthopedics PA/GEOMETRY PROFESSOR: Auto-Assigned Orthopedic Surgery 11/12/14 Severo Lamb MD [address], [place] [phone] Allergy Physician: Auto-assigned Allergy & Immunology 12/24/14 Lian Roland MD Dermatology Physician: Auto-assigned Dermatology 01/14/15 Servando Moreno MD ASEM Physician: Auto-assigned Sports Medicine 05/13/15 documented as of this encounter
--- OUTSIDE RECORDS SUMMARY | 2025-01-31 04:25 | XMS_ITS | Encounter Summary ---
Author Organization [facility] Address [address] [place] [address] Care Team Providers Care Surgical Scrub Technician Name Role Phone Mauro Cedeno BELKIS Unavailable + Delon Calderon PA-C Unavailable Severo Lamb MD Unavailable [phone] Lian Roland MD Unavailable [phone] Servando Moreno MD Unavailable Ryani Joyce Cheung DO Primary Care Provider Encounter Details Date Type Department Care Team (Late st Contact Info) Description 03/28/2023 Automated Patient Message [address] [address] Social History Tobacco Use Types [...] place to sleep or slept in a detention (including now)? 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 Not [...] Description 02/12/2025 2:15 PM PST Procedure Visit [facility] [address] [place] [phone] documented as of this encounter Visit Diagnoses Not on filedocumented in this encounter Care Teams Surgical Scrub Technician Relationship Specialty Start Date End Date Joyce Jones DO [address] [place] [address] PCP - General 04/06/19 Mauro Cedeno, OD [address] [place] [address] Art Consultant: Auto-assigned Optometry, General 10/22/14 Delon Calderon, PA-C [address] [place] [address] Orthopedics PA/MACHINERY REPAIR MAINTENANCE SUPERVISOR: Auto-Assigned Orthopedic Surgery 11/12/14 Severo Lamb MD [address] [place] [phone] Allergy Physician: Auto-assigned Allergy & Immunology 12/24/14 Lian Roland MD Dermatology Physician: Auto-assigned Dermatology 01/14/15 Servando Moreno MD ASEM Physician: Auto-assigned Sports Medicine 05/13/15 documented as of this encounter
--- OUTSIDE RECORDS SUMMARY | 2025-01-31 04:25 | XMS_ITS | Encounter Summary ---
Author Organization [facility] Address [address] [place] [address] Care Team Providers Care Sales And Service Advisor Name Role Phone Mauro Cedeno OD Unavailable + Delon Calderon PA-C Unavailable Severo Lamb MD Unavailable [phone] Lian Roland MD Unavailable Servando Moreno MD Unavailable Joyce Hart DO Primary Care Provider Reason for Referral * Outpatient Service (Routine) - Denied Specialty Diagnoses / Procedures Referred By Contmicah t Referred To Contact Anesthesiology Diagnoses Personal history of colonic polyps Procedures REF ANESTHESIOLOGY ANES LWR INTESTINAL ENDO PX, INTRO DISTAL/DUODENUM, NOS ANES LWR INTESTINAL ENDO PX, INTRO DISTAL/DUODENUM, SCREENING COL Pili Sheehan [facility] [address] [place] [address] Phone: tel: St[facility] [address] [address] [place] [address] Referral ID Status Reason Start Date Expiration Date V isits Requested Visits Authorized [id number] Denied Procedure Only 09/01/2021 09/01/2022 1 0 * Outpatient Service (Routine) - Closed Specialty Diagnoses / Procedures Referred By Contac t Referred To Contact Gastroenterology Diagnoses Personal history of colonic polyps Procedures REF GASTROENTEROLOGY COLONOSCOPY W/ BX SINGLE/MULT Pili Sheehan [facility] [address] [place] [address] Phone: tel: [facility] [address] [address] [place] [address] Referral ID Status Reason Start Date Expiration Date V isits Requested Visits Authorized [id number] Closed Procedure Only 09/01/2021 09/01/2022 1 1 Encounter Details Date Type Department Care Team (Late st Contact Info) Description 09/01/2021 Community Orders Non [facility] Provider Pili Sheehan [facility] [address] [place] [address] Personal history of colonic polyps (Primary Dx) Social History Tobacco Use Types Packs/Day Years Used Date Smoking Tobacco: Never Smokeless Tobacco: Never Alcohol Use Standard Drinks/Week Comments Yes 0 (1 standard drink = 0.6 oz pur e alcohol) occasionally Sex and Gender Information Value Date Recorded Sex Assigned at Male 10/12/2021 10:44 PM PDT Legal Sex Male 10:11 PM PST Gender Identity Male 10/12/2021 10:44 PM PDT Sexual Orientation Not on file 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 Not [...] Description 02/12/2025 2:15 PM PST Procedure Visit [facility] [address] [place] [address] documented as of this encounter Visit Diagnoses Diagnosis Personal history of colonic polyps- Primary documented in this encounter Care Teams Sales And Service Advisor Relationship Specialty Start Date End Date Joyce Jones DO [address] [place] [address] PCP - General 04/06/19 Mauro Cedeno OD [address] [place] [address] Flight Operations Coordinator: Auto-assigned Optometry, General 10/22/14 Delon Calderon PA-C [address] [place] [address] Orthopedics PA/PLUGGER: Auto-Assigned Orthopedic Surgery 11/12/14 Severo Lamb MD [address] [address] Allergy Physician: Auto-assigned Allergy & Immunology 12/24/14 Lian Roland MD Dermatology Physician: Auto-assigned Dermatology 01/14/15 Servando Moreno MD ASEM Physician: Auto-assigned Sports Medicine 05/13/15 documented as of this encounter
--- OUTSIDE RECORDS SUMMARY | 2025-01-31 04:25 | XMS_ITS | Clinical Summary ---
Author Organization [facility] Address [address] [place] [address] Care Team Providers Care Ethylbenzene Cracking Supervisor Name Role Phone Leo Marques MD Primary Care Provider + Social History Tobacco Use Types Packs/Day Years Used Date Smoking Tobacco: Never Assessed Sex and Gender Information Value Date Recorded Sex Assigned at Not on file Legal Sex Male 12:55 PM PST Gender Identity Not on file Sexual Orientation Not on file Plan of Treatment Not on file Insurance [facility] Care Teams Ethylbenzene Cracking Supervisor Relationship Specialty Start Date End Date Leo Marques MD [address] [address] PCP - General Family Practice 01/14/15
--- OUTSIDE RECORDS SUMMARY | 2025-01-31 04:25 | XMS_ITS | Encounter Summary ---
Author Organization [facility] Address [address] [place] [address] Care Team Providers Care Packaging Machine Supplies Distributor Name Role Phone Mauro Cedeno OD Unavailable + Delon Calderon PA-C Unavailable Severo Lamb MD Unavailable [phone] Lian Roland MD Unavailable [phone] Servando Moreno MD Unavailable Joyce Hart DO Primary Care Provider [phone] Reason for Visit * Reason Comments SLOT FLOOR PERSON MUSCULOSKEL Encounter Details Date Type Department Care Team (Late st Contact Info) Description 01/14/2025 [facility] Telephone Encounter Consulting Nurse [address] 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 Follow over the counter (OTC) medication directions according to tank truck mechanic FOR PAIN OR FEVER, MAY USE ONE OF THE FOLLOWING: Acetaminophen (Tylenol) Ibuprofen (Advil, Motrin, Nuprin) Naproxen Sodium (Aleve) Aspirin CONTRAINDICATIONS: 1. Acetaminophen (Tylenol) - Do not take if history of liver disease, hepatitis, chronic alcoholismor if allergic 2. Ibuprofen (Advil, Motrin, Nuprin) - Do not take if , 65 years and older, history of ulcers, kidney disease, taking anticoagulants or if allergic. Do not take longer than 7 days without consulting your Provider. 3. Naproxen Sodium (Aleve) - Do not take if , 65 years and older, history of ulcers, kidneydisease, taking anticoagulants or if allergic. Do not take longer than 7 days without consulting your Provider. 4. Aspirin - Do not take if (unless instructed to by your Provider), history of ulcers, kidney disease, taking anticoagulants or if allergic. Do not take if under 20 years of age or 65 yearsand older. NOTE: Initially start with one medication of your choice to manage your symptoms. If needed, ACETAMINOPHEN (Tylenol) and a choice of anti-inflammatory medications (Ibuprofen, Naproxen, or Aspirin) may be taken together if relief not obtained with one product. DO NOT combine more than 1 anti-inflammatory medication with Tylenol. Follow tank truck mechanic directions and do not exceed the maximum dose when combining medications. , Back Pain Exercises: EXERCISE BASICS The basic types of exercises that can help your back include: flexion, extension, and stretching and strengthening Start with 5 repetitions 3 to 4 times a day, and gradually increase to 10 repetitions Do all exercises slowly No not need to do every exercise; stick with the ones that help the most If any exercise causes increased or continuing back pain, stop the exercise and try something else. Stop any exercise that causes the pain to radiate away from your spine into your buttocks or legs, either during or after the exercises. Many websites offer free videos and tutorials for basic back stretches and exercises. KNEE TO CHEST Lie on the back with knees bent and feet close to buttocks Bring one knee at a time to the chest, keeping the other foot flat on the floor (or the other leg straight, whichever feels better on your lower back) Keep the lower back pressed to the floor Hold for 5 to 10 seconds PELVIC TILTS Gently moves the spine and stretches the low back. Lie on your back with knees bent and feet flat on the floor. Slowly tighten your stomach muscles and press your low back against the floor. Hold for 10 seconds (do not hold your breath) Slowly relax , and Back Pain Expectations, Call Back Info: BACK PAIN EXPECTATIONS Most back strain will improve or resolve on its own in 1 to 4 weeks with home treatment ACUTE BACK PAIN Most gain relief within 4 to 6 weeks of home treatment, but healing may take longer The back is more vulnerable after having had an episode of back strain or injury Most people have at least one episode of recurrent low back pain HERNIATED DISC About 50% recover within 1 month After 6 months, most recover SCIATICA Most sciatica will improve and go away with time EPIDURAL STEROID INJECTION (LUIS ANTONIO) Back may still be sore for a few days before steroids take effect Steroid medication may begin to relieve pain in 1 to 5 days If injections included local anesthetic, pain relief may be immediate but will only last a few hours Possible side effects of dizziness and nausea do not last long Call the Consulting Nurse Service at [phone] or if: -You have new symptoms, such as fever, change in bowel or bladder control, numbness in groin or rectal area, or weakness in leg or foot. -Your back pain doesn't get better after 2 weeks of home treatment. documented in this encounter Miscellaneous Notes * Telephone Encounter - Amari Forrester RN - 01/14/2025 9:42 AM PST Complaint: Adult Back Pain STANDING ORDER AVAILABLE History & timing: Pierre Rider is a 54 year old patient who reports 1 week ago upper left back/shoulder pain Not improving and maybe worsening Hurts to cough/sneeze/certain movements Had some issues with nose bleeds after using flonase Current pain level at rest 2-3 and with coughing/moving 5-8/10 TRIAGE QUESTIONS with DISPOSITIONS: VV, F2F PC w/in 1-2 weeks Chronic back pain OR New back pain (no red flags): VV, F2F PC w/in 1-2 weeks Recommended Plan: Appoint PC Patient indicates understanding and AGREES with the plan. TTP/SO Usage: TTP/SO NOT appropriate and NOT offered. Final Disposition: Appoint - PC Urgent (< 72 hours) Care Advice Adult Back Pain: OTC Medications for Pain Relief: MEDICATION INSTRUCTIONS/SAFETY FOR PAIN OR FEVER Unless you have known allergies or have been advised by a healthcare provider not to use the following medications. Follow over the counter (OTC) medication directions according to tank truck mechanic FOR PAIN OR FEVER, MAY USE ONE OF THE FOLLOWING: Acetaminophen (Tylenol) Ibuprofen (Advil, Motrin, Nuprin) Naproxen Sodium (Aleve) Aspirin CONTRAINDICATIONS: 1. Acetaminophen (Tylenol) - Do not take if history of liver disease, hepatitis, chronic alcoholismor if allergic 2. Ibuprofen (Advil, Motrin, Nuprin) - Do not take if , 65 years and older, history of ulcers, kidney disease, taking anticoagulants or if allergic. Do not take longer than 7 days without consulting your Provider. 3. Naproxen Sodium (Aleve) - Do not take if , 65 years and older, history of ulcers, kidneydisease, taking anticoagulants or if allergic. Do not take longer than 7 days without consulting your Provider. 4. Aspirin - Do not take if (unless instructed to by your Provider), history of ulcers, kidney disease, taking anticoagulants or if allergic. Do not take if under 20 years of age or 65 yearsand older. NOTE: Initially start with one medication of your choice to manage your symptoms. If needed, ACETAMINOPHEN (Tylenol) and a choice of anti-inflammatory medications (Ibuprofen, Naproxen, or Aspirin) may be taken together if relief not obtained with one product. DO NOT combine more than 1 anti-inflammatory medication with Tylenol. Follow tank truck mechanic directions and do not exceed the maximum dose when combining medications. , Back Pain Exercises: EXERCISE BASICS The basic types of exercises that can help your back include: flexion, extension, and stretching and strengthening Start with 5 repetitions 3 to 4 times a day, and gradually increase to 10 repetitions Do all exercises slowly No not need to do every exercise; stick with the ones that help the most If any exercise causes increased or continuing back pain, stop the exercise and try something else. Stop any exercise that causes the pain to radiate away from your spine into your buttocks or legs, either during or after the exercises. Many websites offer free videos and tutorials for basic back stretches and exercises. KNEE TO CHEST Lie on the back with knees bent and feet close to buttocks Bring one knee at a time to the chest, keeping the other foot flat on the floor (or the other leg straight, whichever feels better on your lower back) Keep the lower back pressed to the floor Hold for 5 to 10 seconds PELVIC TILTS Gently moves the spine and stretches the low back. Lie on your back with knees bent and feet flat on the floor. Slowly tighten your stomach muscles and press your low back against the floor. Hold for 10 seconds (do not hold your breath) Slowly relax , and Back Pain Expectations, Call Back Info: BACK PAIN EXPECTATIONS Most back strain will improve or resolve on its own in 1 to 4 weeks with home treatment ACUTE BACK PAIN Most gain relief within 4 to 6 weeks of home treatment, but healing may take longer The back is more vulnerable after having had an episode of back strain or injury Most people have at least one episode of recurrent low back pain HERNIATED DISC About 50% recover within 1 month After 6 months, most recover SCIATICA Most sciatica will improve and go away with time EPIDURAL STEROID INJECTION (LUIS ANTONIO) Back may still be sore for a few days before steroids take effect Steroid medication may begin to relieve pain in 1 to 5 days If injections included local anesthetic, pain relief may be immediate but will only last a few hours Possible side effects of dizziness and nausea do not last long Call the Consulting Nurse Service at [phone] or if: -You have new symptoms, such as fever, change in bowel or bladder control, numbness in groin or rectal area, or weakness in leg or foot. -Your back pain doesn't get better after 2 weeks of home treatment. Note: E-visit will screen for red flags, collect back pain history, provides home care, and facilitates PT referral for moderate to high risk patients. Rx will not be offered. STANDING ORDER: RECURRENT BACK PAIN N/A documented in this encounter Plan of Treatment Upcoming Encounters Date Type Department Care Team (Late st Contact Info) Description 02/12/2025 2:15 PM PST Procedure Visit [facility] [address] [place] [address] documented as of this encounter Visit Diagnoses Not on filedocumented in this encounter Care Teams Packaging Machine Supplies Distributor Relationship Specialty Start Date End Date Joyce Jones DO [address] [place] [address] PCP - General 04/06/19 Mauro Cedeno OD [address] [place] [address] Bearing Grinder: Auto-assigned Optometry, General 10/22/14 Delon Calderon PA-C [address] [place] [address] Orthopedics PA/DATE NIGHT CAREGIVER: Auto-Assigned Orthopedic Surgery 11/12/14 Severo Lamb MD [address] [place] [address] Allergy Physician: Auto-assigned Allergy & Immunology 12/24/14 Lian Roland MD Dermatology Physician: Auto-assigned Dermatology 01/14/15 Servando Moreno MD ASEM Physician: Auto-assigned Sports Medicine 05/13/15 documented as of this encounter
[2025-01-31 04:33] VITALS: BP 118/77; PULSE 87; RESP 16; TEMP 36.7; O2SAT 98
[2025-01-31] MEDS: LOPERAMIDE HCL 2 MG CAPSULE 4 MG PO (05:00)
== END 2025-01-31 05:10 | disposition home or self-care (01) ==
PROVIDERS: Emergency Provider Family Medicine
DX: E86.0 Dehydration (principal); R19.7 Diarrhea, unspecified; R11.2 Nausea with vomiting, unspecified; R55 Syncope and collapse
CPT/HCPCS: 36415; 80048; 85018; 87636; 96361; 96374; 99284; 99285; A9270; J2405; J7030